=== PATIENT | female | born 1955 | race Caucasian/White ===

== ENCOUNTER → 2021-11-08 | Outpatient (CLI) | payer MEDICARE, OTHER ==
--- NOTE | 2021-11-08 11:47 | FL ---
EXAMINATION TYPE: FL barium swallow DATE OF EXAM: 11/08/2021 LAP BANDING LIMITED ESOPHAGRAM: CLINICAL HISTORY: R13.10 dysphagia TECHNIQUE: Limited esophagram is performed utilizing 2-3 oz of barium. COMPARISON: None. FINDINGS: Pre-procedure inspector multifocal lens image shows lap band in satisfactory position in proximal stomach ju st below the gastroesophageal junction. The patient then drank oral contrast. There is good flow of c ontrast along the course of the esophagus. There is good flow of contrast along the course of the la p band, there is no evidence of contrast extravasation to suggest leak. There is no significant tyshawn iván prolapse appreciated. IMPRESSION: No evidence of prolapse or significant obstruction.
== END | disposition home or self-care (01) ==
LOC: RADUSWWP 11:07
PROVIDERS: ATTEND Surgery
DX: R13.10 Dysphagia, unspecified (principal)
CPT/HCPCS: 74220

== ENCOUNTER → 2021-11-12 | Outpatient (CLI) | payer MEDICARE, OTHER ==
[2021-11-12 15:15] VITALS: BP 137/74; PULSE 58; RESP 16; TEMP 98.1; BMI 29.3
--- NOTE | 2021-11-12 15:17 | P.BASOAP ---
Subjective Progress Note Date: 11/12/21 Principal diagnosis: Morbid obesity Patient returns today. She was last seen in September. The patient's band was loosened from 8.5-7 mL because of worsening reflux and vomiting. She had an upper GI performed 11/08 which showed no evidence of obstruction. Here today for lap band fill. Says she feels too loose. She has gained 8 pounds. Objective - Vital Signs Vital signs: Vital Signs Temp 98.1 F 11/12/21 15:07 Pulse 58 L 11/12/21 15:07 Resp 16 11/12/21 15:07 BP 137/74 11/12/21 15:07 Pulse Ox FiO2 Intake & Output 11/11/21 11/12/21 11/12/21 18:59 06:59 18:59 Weight 77.564 kg - Exam Abdomen: Soft, nontender, nondistended Assessment/Plan (1) Morbid obesity Narrative/Plan: Patient doing well at this time. She would like fluid added to her band. We have agreed agreed to add 0.5 mL. The patient's lap band port was palpated. The site was aseptically prepped. The Hunt needle was advanced into the port. A total of 0.5 ml of fluid was added for a total of 7.5 mL. Pressure was held and a sterile dressing was applied. Plan: Date: 11/12/21 Initial Weight: 77.564 kg Initial BMI: 29.3 Current Weight: 77.564 kg Current BMI: 29.3 Type of Surgery: Total Volume in Band: Previous Volume: Volume Removed: Volume Added: Band Size:
== END ==
LOC: BARWHC3 14:59
PROVIDERS: ATTEND Surgery
DX: E66.01 Morbid (severe) obesity due to excess calories (principal); Z68.29 Body mass index [BMI] 29.0-29.9, adult
CPT/HCPCS: 99212

== ENCOUNTER → 2022-06-10 | Outpatient (CLI) | payer MEDICARE, OTHER ==
--- NOTE | 2022-06-10 15:51 | P.BASOAP ---
Subjective Progress Note Date: 06/10/22 Principal diagnosis: Morbid obesity The patient returns for reevaluation. She was last seen in November. In September her band was loosened from 8.5-7 mL because of dysphagia and reflux. In November she was filled from 7-7.5. Since then she has gained 16 pounds. She says the band fills loose and she never really noticed much with the last adjustment. She would like more fill. Objective - Exam Abdomen: Soft, nontender, nondistended Assessment/Plan (1) Morbid obesity Narrative/Plan: 67-year-old female interested in an additional fluid added to her band. We'll add 0.5 mL for a total of 8 mL. The patient's lap band port was palpated. The site was aseptically prepped. The Hunt needle was advanced into the port. A total of 0.5 ml of fluid was added for a total of 8 mL. Pressure was held and a sterile dressing was applied. Plan: Date: Initial Weight: 77.564 kg Initial BMI: Current Weight: Current BMI: Type of Surgery: Total Volume in Band: 7.5 Previous Volume: Volume Removed: Volume Added: Band Size:
[2022-06-10 16:25] VITALS: BP 130/63; PULSE 70; RESP 16; TEMP 97.9; BMI 33.7
== END ==
LOC: BARWHC3 15:32
PROVIDERS: ATTEND Surgery
DX: E66.01 Morbid (severe) obesity due to excess calories (principal); Z46.51 Encounter for fitting and adjustment of gastric lap band; Z68.33 Body mass index [BMI] 33.0-33.9, adult
CPT/HCPCS: 99211